=== PATIENT | male | born 1985 | race Caucasian/White ===

== ENCOUNTER 2020-02-01 09:51 | Outpatient (CLI) | payer OTHER, SELFPAY ==
[2020-02-01 10:54] LABS: Basophils Absolute Auto 0.1 K/mm3 (0.0-0.1); Basophils Percent Auto 0.7 % (0.2-1.2); Eosinophils Absolute Auto 0.2 K/mm3 (0-0.3); Eosinophils Percent Auto 2.1 % (0-4.4); Hematocrit 43.6 % (42.0-52.0); Hemoglobin 15.3 g/dL (14.0-18.0); Immature Granulocyte Percent A 0.9 % (0-0.5); Lymphocytes Absolute Auto 2.67 K/mm3 (0.9-3.2); Lymphocytes Percent Auto 23.9 % (18.3-44.2); Mean Corpuscular HGB Conc 35.1 g/dl (32-36); Mean Corpuscular Hemoglobin 33.5 pg (26-34); Mean Corpuscular Volume 95.4 fl (80-100); Mean Platelet Volume 9.1 fl (7.4-10.4); Monocytes Absolute Auto 1.2 K/mm3 (0.1-0.6); Monocytes Percent Auto 10.4 % (2.6-8.5); Neutrophils Absolute Auto 6.9 K/mm3 (1.3-6.7); Platelet Count Result 329 k/mm3 (150-375); Red Blood Count 4.57 M/mm3 (4.6-6.20); Red Cell Distribution Width 11.7 % (11.5-14.5); White Blood Count 11.2 K/mm3 (4.5-10.0)
[2020-02-01 11:13] LABS: Anion Gap 10 mmol/L (8-16); Blood Urea Nitrogen 18 mg/dL (9-20); Calcium 9.3 mg/dL (8.4-10.2); Carbon Dioxide 29 mmol/L (22-30); Chloride 101 mmol/L (98-107); Cholesterol 238 mg/dL (0-200); Estimated Glomerular Filt Rate > 60; Glucose 106 mg/dL (75-110); HDL Direct 48 mg/dL; Potassium 4.2 mmol/L (3.4-5.0); Sodium 140 mmol/L (137-145); Triglycerides 108 mg/dL (<150)
[2020-02-01 11:24] LABS: LDL Cholesterol Direct 163 mg/dL
== END 2020-02-01 09:52 | disposition home or self-care (01) ==
PROVIDERS: PCP Family Medicine; Visit Provider Family Medicine
DX: I10 Essential (primary) hypertension (principal); Z13.220 Encounter for screening for lipoid disorders
CPT/HCPCS: 36415; 80048; 80061; 85025

== ENCOUNTER 2020-06-17 11:57 | Emergency (ER) | payer OTHER, SELFPAY ==
--- NOTE | 2020-06-17 12:05 | ED.GENADULT ---
HPI - General Adult General Chief complaint: Head Injury Stated complaint: Head Injury Time Seen by Provider: 06/17/20 12:05 Source: patient Mode of arrival: ambulatory Limitations: no limitations Related Data Allergies Allergy/AdvReac Type Severity Reaction Status Date / Time No Known Allergies Allergy Verified 01/15/20 08:57 Review of Systems Review of Systems: Narrative: CONSTITUTIONAL: Denies fever, chills, or sweats. EYES: Denies visual changes, redness, or discharge. ENT: Denies rhinorrhea, congestion, sore throat, or otalgia. CARDIOVASCULAR: Denies chest pain, palpitations, or edema. RESPIRATORY: Denies cough or dyspnea. GASTROINTESTINAL: Denies abdominal pain, nausea, vomiting, or diarrhea. GENITOURINARY: Denies dysuria or hematuria. SKIN: Denies rash or itching. MUSCULOSKELETAL: Denies back pain, joint pain, or myalgia. NEUROLOGIC: Denies headache, numbness, or weakness. PSYCHIATRIC: Denies anxiety or depression. [facility] Past Medical History Medical History Genital herpes Screening, lipid Family History Family History Other Hypertension Social History Social History Smoking status: Current some day smoker Alcohol intake: current Comments At the time of my signature I agree with nursing past medical history, surgical, social, and family history. There is no relevant family history pertinent to the presenting complaint. Exam Narrative: Exam Narrative: GENERAL: Well-appearing, well-nourished, and in no acute distress. HEAD: Normocephalic, atraumatic. EYES: PERRLA and EOMI. ENT: Nares clear, no rhinorrhea or epistaxis. Mucous membranes moist. NECK: Supple. No lymphadenopathy CHEST: Clear to auscultation. No respiratory distress. HEART: Regular rate and rhythm. No murmur heard. Normal peripheral pulses. ABDOMEN: Soft, nontender, nondistended, normal active bowel sounds. EXTREMITIES: Normal range of motion. No edema. SKIN: Warm, dry, no rash. NEURO: No focal deficits. Alert and oriented x3. Course Vital Signs Vital signs: Vital signs reviewed Medical Decision Making Differential Diagnosis Differential Diagnosis: Differential diagnosis: Migraine, cluster headache, tension headache, sinusitis, dental infection, TMJ problems, pseudotumor cerebri, meningitis, encephalitis, giant cell arteritis, glaucoma, subarachnoid hemorrhage, subdural or epidural hematoma, intracranial bleed or tumor. Critical Care Time Critical Care Time Critical Care Time: No Discharge Plan Discharge Prescriptions: No Action valacyclovir [Valtrex] 500 mg tablet 500 mg PO DAILY Qty: 30 RF: 5 lisinopril 10 mg tablet 10 mg PO DAILY Qty: 30 RF: 5
== END 2020-06-17 12:06 | disposition left against medical advice (07) ==
LOC: EXPCOLL 12:02
PROVIDERS: Emergency Provider Nurse Practitioner Family; PCP Family Medicine
DX: Z53.21 Procedure and treatment not carried out due to patient leaving prior to being seen by health care provider (principal)
CPT/HCPCS: 99199

== ENCOUNTER 2020-06-17 12:34 | Emergency (ER) | payer OTHER, SELFPAY ==
[2020-06-17] VITALS (30 sets, daily range): BP systolic 131–167; BP diastolic 82–98; PULSE 60–87; RESP 11–23; TEMP 36.8–37.1; O2SAT 95–100
--- NOTE | ~2020-06-17 | CT_ITS ---
EXAMINATION: CT brain wo con EXAM DATE: 06/17/2020 15:21 INDICATION: Head injury, loss of consciousness, vomiting. TECHNIQUE: Spiral CT of the head was performed without contrast. Axial, coronal and sagittal images were reviewed. The dose-length product (DLP) for this examination was 605.33 mGy-cm. The exposure w as tailored according to patient size, and iterative reconstruction (ASIR) was used as additional dos e reduction technique. There is no prior study for comparison. FINDINGS: There is hypodense region in the inferior aspect of the right frontal lobe measuring about 2, characteristic location for recent hemorrhagic contusion. Additionally, suspect smaller subacute h emorrhagic contusions in the anterior aspects of both temporal lobes. Follow-up examination is indica pepper to confirm expected evolution. There is acute extra-axial collection overlying the left occipitoparietal region measuring about 7 mm in thickness, crossing the left lambdoid suture making this a subdural hematoma. There are couple of tiny foci of gas identified within this. Slight asymmetry in the width of the lambdoid suture with t he left being slightly wider and possible slight offset identified on axial image 19. Otherwise, no e vidence of calvarial fracture. Small amount of scalp swelling overlying this. Mastoid air cells are well aerated as are the ethmoid sinuses. No brain mass or acute infarction is s uspected, assuming expected evolution of above cortical findings. No obstructive hydrocephalus. IMPRESSION: 1. Small to moderate-sized acute left-sided occipitoparietal subdural hematoma, with 2 tiny foci of gas, possible slightly offset incompletely fused lambdoid suture. 2. Small right frontal hypodensity and smaller bitemporal hypodensities most likely recent hemorrhag ic contusions. I discussed acute findings with Maryellen Cintron PA-C at 06/17/2020 15:37 PICTURE BOOKER. Reviewed, dictated and finalized at location A. URE BOOKER IMPRESSION: 1. Small to moderate-sized acute left-sided occipitoparietal subdural hematoma , with 2 tiny foci of gas, possible slightly offset incompletely fused lambdoid suture. 2. Small right frontal hypodensity and smaller bitemporal hypodensities most l ikely recent hemorrhagic contusions. I discussed acute findings with Maryellen Cintron PA-C at 06/17/2020 15:37 PICTURE BOOKER.
--- NOTE | ~2020-06-17 | CT_ITS ---
EXAMINATION: CT facial & cervical spine wo EXAM DATE: 06/17/2020 15:21 INDICATION: Head injury. Neck pain. TECHNIQUE: Spiral CT of the facial bones was acquired in the axial plane. Coronal reformatted images were also reviewed. Spiral CT of the cervical spine was performed without contrast. Axial images we re reviewed. Coronal and sagittal reformatted images were also reviewed. The dose-length product (DL P) for this examination was 462.22 mGy-cm. The exposure was tailored according to patient size, and iterative reconstruction (ASIR) was used as additional dose reduction technique. There is no prior s tudy for comparison. FINDINGS: FACIAL CT: There are no displaced acute nasal bone fractures. The mandible, sinuses and orbits are i ntact. The orbits, globes and extraocular muscles are unremarkable. The visualized sinuses and ma stoid air cells are well aerated. CERVICAL CT: Tiny foci of pneumocephalus in left extra-axial subdural hematoma better seen on CT. The re is no evidence of acute cervical fracture. The odontoid process is intact. Pre-dens space is nor mal. Prevertebral soft tissue is normal. There are no soft tissue abnormalities identified. There is no disc space widening or traumatic vertebral body subluxation suspected. Vertebral body and disc heights are well-maintained. A detailed level by level evaluation of spondylosis can be added as a ddendum if requested. IMPRESSION: 1. No acute facial or cervical fracture. 2. Tiny foci of pneumocephalus. Refer to CT head report. Reviewed, dictated and finalized at location A. PULLER
--- NOTE | 2020-06-17 14:56 | ED.FALL ---
HPI - Fall General Chief Complaint: Fall <Maryellen Cintron PA-C - Last Filed: 06/17/20 16:23> Stated Complaint: fall/loc <Maryellen Cintron PA-C - Last Filed: 06/17/20 16:23> Time Seen by Provider: 06/17/20 14:10 <Maryellen Cintron PA-C - Last Filed: 06/17/20 16:23> Source: patient <AMALIA Lange Last Filed: 06/17/20 16:23> Mode of arrival: ambulatory <Maryellen Cintron PA-C - Last Filed: 06/17/20 16:23> Limitations: no limitations <Maryellen Cintron PA-C - Last Filed: 06/17/20 16:23> History of Present Illness HPI Narrative: This is a 34 year old male that presents to the ER for a head injury 4 days ago. Reports he slipped and fell backwards and hit his head. Reports he did lose consciousness. Reports he felt like he was getting better, but last night his headaches started to worsen again. Reports he has had a couple of episodes of vomiting. Also report neck pain and a black eye. Denies fever, vision changes, numbness or weakness. <Maryellen Cintron PA-C - Last Filed: 06/17/20 16:23> Related Data Allergies/Adverse Reactions: Allergies Allergy/AdvReac Type Severity Reaction Status Date / Time amoxicillin Allergy Hives Verified 06/17/20 12:46 <Maryellen Cintron PA-C - Last Filed: 06/17/20 16:23> Review of Systems Review of Systems: Narrative: CONSTITUTIONAL: Denies fever EYES: Denies visual changes GASTROINTESTINAL: Reports vomiting MUSCULOSKELETAL: Reports joint pain, and myalgia. NEUROLOGIC: Reports headache. Denies numbness, or weakness. <AMALIA Lange Last Filed: 06/17/20 16:23> All systems reviewed & are unremarkable except as noted in HPI and below <Maryellen Cintron PA-C - Last Filed: 06/17/20 16:23> [facility] Past Medical History Medical History: Medical History (Updated 06/17/20 @ 16:19 by Maryellen Cintron PA-C) Genital herpes History of hypertension Screening, lipid <Maryellen Cintron PA-C - Last Filed: 06/17/20 16:23> Family History Family History: Family History Other Hypertension <Maryellen Cintron PA-C - Last Filed: 06/17/20 16:23> Social History Social History: Social History Smoking status: Current some day smoker Alcohol intake: current <Maryellen Cintron PA-C - Last Filed: 06/17/20 16:23> Exam Narrative: Exam Narrative: GENERAL: Well-appearing, well-nourished, and in no acute distress. HEAD: Normocephalic. EYES: PERRLA and EOMI. Ecchymosis of right upper eyelid, and below right lower eyelid ENT: Nares clear, no rhinorrhea or epistaxis. Mucous membranes moist. Oropharynx without tonsillar hypertrophy exudate or other lesions. Bilateral TMs pearly mustafa non-bulging NECK: Supple. No adenopathy or masses. Tender to palpation of midline cervical spine CHEST: Clear to auscultation. No respiratory distress. No wheezes rales or rhonchi HEART: Regular rate and rhythm. No murmur heard. Normal peripheral pulses. BACK: No midline thoracic or lumbar spine tenderness EXTREMITIES: Normal range of motion. No edema or obvious deformity. SKIN: Warm, dry, no rash. NEURO: No focal deficits. Alert and oriented x3. Cranial nerves II through XII grossly intact PSYCH: Normal mood and affect <Maryellen Cintron PA-C - Last Filed: 06/17/20 16:23> Course MANAGER THERAPY/PA Physician Supervision For this patient encounter, I reviewed the MANAGER THERAPY or PA documentation, treatment plan, and medical decision making; and I had [id number] time with this patient. Patient fell and hit his head 4 days ago. He was found to have SDH with pneumocephalus. HE is sitting in bed in no acute distress. He is neurovascular intact . Alert and oriented x4 . He is awaiting transfer to [place]. <Evelyn Jorge MD - Last Filed: 06/17/20 16:41> Consultations Consultation #1: Spoke with Dr. Boyle, neurosurgery at [place], about patient and work-up. Would
[2020-06-17] MEDS: KETOROLAC (*BKC) 60 MG/2 ML VIAL IM (15:03)
[2020-06-17] MEDS: levETIRAcetam 1000MG/NACL100ML 1,000 MG/100 ML BAG 400 MG IVPB (16:16)
[2020-06-17 16:37] LABS: Basophils Absolute Auto 0.1 K/mm3 (0.0-0.1); Basophils Percent Auto 0.4 % (0.2-1.2); Eosinophils Absolute Auto 0.1 K/mm3 (0-0.3); Eosinophils Percent Auto 0.7 % (0-4.4); Hematocrit 44.7 % (42.0-52.0); Hemoglobin 15.9 g/dL (14.0-18.0); Immature Granulocyte Absolute 0.07 K/mm3 (0.00-0.031); Immature Granulocyte Percent A 0.5 % (0-0.5); Lymphocytes Absolute Auto 2.61 K/mm3 (0.9-3.2); Lymphocytes Percent Auto 17.6 % (18.3-44.2); Mean Corpuscular HGB Conc 35.6 g/dl (32-36); Mean Corpuscular Hemoglobin 34.2 pg (26-34); Mean Corpuscular Volume 96.1 fl (80-100); Mean Platelet Volume 9.5 fl (7.4-10.4); Monocytes Absolute Auto 1.1 K/mm3 (0.1-0.6); Monocytes Percent Auto 7.7 % (2.6-8.5); Neutrophils Absolute Auto 10.8 K/mm3 (1.3-6.7); Neutrophils Percent Auto 73.1 % (45.5-73.1); Platelet Count Result 334 k/mm3 (150-375); Red Blood Count 4.65 M/mm3 (4.6-6.20); Red Cell Distribution Width 11.6 % (11.5-14.5); White Blood Count 14.8 K/mm3 (4.5-10.0)
[2020-06-17 16:47] LABS: INR 0.9; Prothrombin Time 13.1 Seconds (11.1-14.7)
[2020-06-17 16:48] LABS: Partial Thromboplastin Time 30.3 SECONDS (22.3-36.8)
[2020-06-17 16:49] LABS: Anion Gap 9 mmol/L (8-16); Blood Urea Nitrogen 14 mg/dL (9-20); Calcium 9.4 mg/dL (8.4-10.2); Carbon Dioxide 25 mmol/L (22-30); Chloride 105 mmol/L (98-107); Estimated CRCL calculation 135 ml/min; Estimated Glomerular Filt Rate > 60; Glucose 98 mg/dL (75-110); Potassium 3.9 mmol/L (3.4-5.0); Sodium 139 mmol/L (137-145)
--- NOTE | 2020-06-17 18:09 | PC.NURSE ---
called [facility] 1623 for transport eta 1800, called for update 1805, new eta [id number], [facility] no ambulances for transport today 0820, called [facility] 1703 long wait time reported.
--- NOTE | 2020-06-17 20:14 | PC.NURSE ---
new updated eta for [facility] to transfer is 2100 per [facility]
== END 2020-06-17 21:35 | disposition short-term general hospital (02) ==
PROVIDERS: Physician Assistant; Emergency Provider General Practice; PCP Family Medicine
DX: S06.5X9A Traumatic subdural hemorrhage with loss of consciousness of unspecified duration, initial encounter (principal); I10 Essential (primary) hypertension; F17.200 Nicotine dependence, unspecified, uncomplicated; W01.0XXA Fall on same level from slipping, tripping and stumbling without subsequent striking against object, initial encounter
CPT/HCPCS: 36415; 70450; 70486; 72125; 80048; 85025; 85610; 85730; 96365; 96366; 96372; 96375; 99291; J0131; J1885; J1953

== ENCOUNTER 2021-10-31 13:18 | Emergency (ER) | payer OTHER, SELFPAY ==
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
[2021-10-31 13:44] VITALS: BP 142/76; PULSE 92; RESP 18; O2SAT 97
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
[2021-10-31 15:20] LABS: Estimated CRCL calculation 133 ml/min; Estimated Glomerular Filt Rate > 60
== END 2021-10-31 16:33 | disposition home or self-care (01) ==
PROVIDERS: Emergency Provider Emergency Medicine; PCP Family Medicine
DX: S22.41XA Multiple fractures of ribs, right side, initial encounter for closed fracture (principal); I10 Essential (primary) hypertension; F17.220 Nicotine dependence, chewing tobacco, uncomplicated; V86.55XA Driver of 3- or 4- wheeled all-terrain vehicle (ATV) injured in nontraffic accident, initial encounter
CPT/HCPCS: 71260; 74177; 99284; Q9967

== ENCOUNTER 2023-11-30 16:11 | Outpatient (CLI) | payer OTHER, SELFPAY ==
--- NOTE | ~2023-11-30 | XR_ITS ---
XR foot LT 2V Ordering provider: Betina Anthony APRN History: . M79.673 - Pain in unspecified foot . Comparison: None. FINDINGS: BONES: No acute fracture or dislocation. JOINT SPACES: Normal. No tarsal coalition. SOFT TISSUES: Normal. IMPRESSION: No acute osseous abnormality left foot. Reviewed, dictated and finalized at location A.
== END 2023-11-30 16:12 ==
PROVIDERS: PCP Nurse Practitioner Adult Health; Visit Provider Nurse Practitioner Adult Health
DX: M79.672 Pain in left foot (principal)
CPT/HCPCS: 73620

== ENCOUNTER 2024-11-13 12:54 | Outpatient (CLI) | payer OTHER, SELFPAY ==
--- NOTE | ~2024-11-13 | MR_ITS ---
MRI of the left hindfoot Clinical history: Plantar fascial fibromatosis Technique: Coronal T1-weighted and proton-density fat-sat images, axial proton-density and proton-den sity fat-sat images, and sagittal T1-weighted and STIR images were acquired. Findings: Syndesmotic ligaments at the ankle are intact. Anterior and posterior talofibular ligaments , and calcaneofibular ligament are intact. Deltoid ligament intact. Medial flexor tendons, peroneal tendons, anterior extensor tendons, and Achilles tendon are intact. There is no osteochondral lesion of the talar dome. There is benign cystic change in the mid calcanea l body. No other bone marrow signal abnormality seen. Joint spaces are intact. No joint effusion. Plantar fascia is unremarkable. No acute inflammatory change seen. No soft tissue mass or fluid colle ction. Impression: No significant abnormality seen. No abnormality seen at the area of the marker at the plantar aspect of the hindfoot. Reviewed, dictated and finalized at [facility]. Impression: No significant abnormality seen. No abnormality seen at the area of the marker at the plantar aspect of the hindfoot.
== END 2024-11-13 12:55 | disposition home or self-care (01) ==
PROVIDERS: PCP Family Medicine; Visit Provider Nurse Practitioner Adult Health
DX: M72.2 Plantar fascial fibromatosis (principal)
CPT/HCPCS: 73718